=== PATIENT | male | born 1980 | race Caucasian/White ===

== ENCOUNTER 2024-05-29 07:39 | Inpatient (IN) | payer OTHER ==
[~2024-05-29] VITALS: Ht 177.8 cm; Wt 57.2 kg
[2024-05-29] MEDS ORDERED: DEXTROSE (50%) 50ML SYRG IV PRN ×2 (07:45→09:15)
[2024-05-29] MEDS: SODIUM CHLORIDE 0.9% 1,000 ML IV ONE (07:45)
--- NOTE | 2024-05-29 07:46 | ED.PDOC ---
History of Present Illness HPI Comments This is a 44-year-old male who comes in with chief complaint of possible DKA. The patient has a history of diabetes and states that his insulin pump broke approximately one week ago. The patient was now having some nausea and vomiting. The patient had an Accu-Chek of 450 by the paramedics EN route. He received 800 cc of normal saline as well as Zofran 8 mg IV push for the nausea and vomiting. The patient was also complaining of some pain so was given acetaminophen 1 g IV piggyback. Upon arrival, the patient was also having some Kussmaul breathing as well as some abdominal pain. He admits to using marijuana on a regular basis as well. Time Seen by MD: 07:39 Reviewed Notes: Nurses Notes, Landscape Specialist Notes, Medications, Allergies (No allergies to medications) Allergies: Coded Allergies: NO KNOWN ALLERGIES (Unverified , 05/29/24) Information Source: Patient, Emergency Med Personnel Mode of Arrival: EMS Severity: Moderate Timing: Hours Duration: Since onset Prehospital treatment: Accucheck, Credit Product Analyst, IVF, Other (Normal saline bolus, Zofran 8 mg IV push) Location: Generalized abdominal pain Other History Associated vomiting Past Medical History PAST MEDICAL HISTORY: Asthma, DM Past Medical History (Other): Gastroparesis Surgical History: Appendectomy Surgical History (Other): Abdominal surgery Family History Family History: Family hx of DM, Family hx of Cancer Social History Smoker: Non-Smoker Alcohol: Denies ETOH Use Drugs: Marijuana Lives In: Home Constitutional: denies: chills, diaphoresis, fatigue, fever, malaise, sweats, weakness, others EENTM: denies: blurred vision, double vision, ear bleeding, ear discharge, ear drainage, ear pain, ear ringing, eye pain, eye redness, hearing loss, mouth pain, mouth swelling, nasal discharge, nose bleeding, nose congestion, nose pain, photophobia, tearing, throat pain, throat swelling, voice changes, others Respiratory: reports: shortness of breath; denies: cough, hemoptysis, orthopnea, SOB at rest, SOB with excertion, stridor, wheezing, others Cardiovascular: denies: chest pain, dizzy spells, diaphoresis, Dyspnea on exertion, edema, irregular heart beat, left arm pain, lightheadedness, palpitations, PND, syncope, others Gastrointestinal: reports: abdominal pain, nausea, vomiting; denies: abdomen distended, blood streaked bowels, constipated, diarrhea, dysphagia, difficulty swallowing, hematemesis, melena, poor appetite, poor fluid intake, rectal b leeding, rectal pain, others Genitourinary: denies: burning, dysuria, flank pain, frequency, hematuria, in continence, penile discharge, penile sore, pain, testicle pain, testicle swelling, urgency, others Neurological: denies: dizziness, fainting, headache, left sided numbness, left sided weakness, numbness, paresthesia, pre-existing deficit, right sided numbness, right sided weakness, seizure, speech problems, tingling, tremors, weakness, others Musculoskeletal: denies: back pain, gout, joint pain, joint swelling, muscle pain, muscle stiffness, neck pain, others Integumetry: denies: bruises, change in color, change in hair/nails, dryness, laceration, lesions, lumps, rash, wounds, others Allergic/Immunocompromised: denies: Difficulty Healing, Frequent Infections, Hives, Itching, others Hematologic/Lymphatic: denies: anemia, blood clots, easy bleeding, easy bruising, swollen glands, others Endocrine: denies: excessive hunger, excessive sweating, excessive thirst, excessive urination, flushing, intolerance to cold, intolerance to heat, unexplained weight gain, unexplained weight loss, others Psychiatric: denies: anxiety, bipolar disorder, depression, hopeless, panic disorder, schizophrenia, sleepless, suicidal, others Physical Exam General Appearance: Moderate Distress HEENT: Normal ENT Inspection, Pharynx Normal, TMs Normal Neck: Full Range of Motion, Non-Tender, Normal, Normal Inspection Respiratory: Chest Non-Tender, Decreased Breath Sounds, Lungs Clear, No Accessory Muscle Use, Respiratory Distress Cardiovascular: No Edema, No JVD, No Murmur, No Gallop, Tachycardia Breast Exam: Deferred Gastrointestinal: No Organomegaly, Non Tender, No Pulsatile Mass, Normal Bowel Sounds, Soft Genitalia: Deferred Pelvic: Deferred Rectal: Deferred Extremities: No calf tenderness, Normal capillary refill, Normal inspection, Normal range of motion, Non-tender, No pedal edema Musculoskeletal : Apperance: Normal Neurologic: collection advisor II-XII nml as Tested, Motor Weakness, Normal Affect, Normal Mood, No Sensory Deficits, Other (Slight lethargy) Cerebellar Function: Normal Reflexes: Normal Skin: Dry, Normal Color, Warm Lymphatic: No Adenopathy Was a procedure done? Was a procedure done?: No EKG EKG : Pulse Rate (adult): 118 [place]: Normal Cardiac Rhythm: ST Block: None ST: Nonsp Differential Dx Considerations may include: DKA, generalized weakness, sepsis X-Ray, Labs, Meds, VS Vital Signs Date Time Temp Pulse Resp B/P (MAP) Pulse Ox O2 Delivery O2 Flow Rate FiO2 05/29/24 08:14 117 22 148/97 05/29/24 07:58 118 05/29/24 07:50 97.5 122 22 179/103 (128) 98 05/29/24 07:50 Room Air* 0 21 Lab Test 05/29/24 07:55 Range/Units White Blood Count 23.8 H 4.4-10.8 10^3/uL Red Blood Count 5.25 4.5-5.90 10^6/uL Hemoglobin 15.5 13.5-17.5 g/dL Hematocrit 45.9 41.0-53.0 % Mean Corpuscular Volume 87.3 80.0-100.0 fL Mean Corpuscular Hemoglobin 29.6 28.0-32.0 pg Mean Corpuscular Hemoglobin Concent 33.9 32.0-36.0 g/dL Red Cell Distribution Width 14.3 11.8-14.3 % Platelet Count 335 140-450 10^3/uL Mean Platelet Volume 8.9 6.9-10.8 fL Neutrophils (%) (Auto) 37.0-80.0 % Lymphocytes (%) (Auto) 10.0-50.0 % Monocytes (%) (Auto) 0.0-12.0 % Basophils (%) (Auto) 0.0-2.0 % Neutrophils # (Auto) 1.6-8.6 10 ^3/uL Lymphocytes # (Auto) 0.4-5.4 10 ^3/uL Monocytes # (Auto) 0-1.3 10 ^3/uL Differential Total Cells Counted Pending Neutrophils % (Manual) Pending Band Neutrophils % (Manual) Pending Lymphocytes % (Manual) Pending Monocytes % (Manual) Pending Eosinophils % (Manual) Pending Basophils % (Manual) Pending Metamyelocytes % (manual) Pending Myelocytes % (Manual) Pending Promyelocytes % (Manual) Pending Blast Cells % (Manual) Pending Reactive Lymphocytes Pending Platelet Estimate Pending Blood Gas Specimen Type Arterial Blood Gas Sample Site Left radial Blood Gas Patient Temperature 37.0 Arterial Blood Date Drawn [id number] Arterial Blood pH 7.105 *L 7.350-7.450 Arterial Blood Partial Pressure CO2 < 12.6 *L 35.0-48.0 mmHg Arterial Blood Partial Pressure O2 103.9 83.0-108.0 mmHg Arterial Blood Oxygen Saturation 97.4 94.0-98.0 % Arterial Blood Oxyhemoglobin 96.3 94.0-98.0 % Arterial Blood Carboxyhemoglobin 0.6 0.5-1.5 % Arterial Blood Methemoglobin 0.5 0.0-1.5 % Gil Test Modified Blood Gas Total Hemoglobin 15.70 13.5-17.5 g/dL Blood Gas Liter Flow 2.00 Blood Gas Modality Nasal cannula FiO2 % 28.0 Blood Gas Critical Value Read Back Yes Blood Gas Notified Whom Blood Gas Notified Time [id number] Blood Gas Notified By Automotive Technology Instructor parisa Sodium Level 130 L 136-145 mmol/L Potassium Level 4.8 3.5-5.1 mmol/L Chloride Level 99 98-107 mmol/L Carbon Dioxide Level < 10 *L 20-31 mmol/L Anion Gap 21.08804 H 5-15 Blood Urea Nitrogen 13 9-23 mg/dL Creatinine 1.19 0.700-1.30 mg/dL Glomerular Filtration Rate Calc 77 >90 mL/min BUN/Creatinine Ratio 10.9 10.0-20.0 Serum Glucose 411 *H 74-106 mg/dL Calcium Level 8.9 8.7-10.4 mg/dL Beta-Hydroxybutyric Acid Pending Current Medications Medications (Trade) Dose Ordered Sig/Jaci Route Start Time Stop Time Status Last Admin Insulin Glargine (Lantus) 15 units ONCE ONCE SC 05/29/24 07:45 05/29/24 07:46 DC 05/29/24 08:15 Sodium Chloride 1,000 ml @ 1,000 mls/hr Q1H ONCE IV 05/29/24 07:45 05/29/24 08:44 DC 12/3/24 07:45 Morphine Sulfate 4 mg ONCE ONCE IV 05/29/24 07:45 05/29/24 07:46 DC 05/29/24 08:14 DKA protocol was ordered IV Hep-Lock was established. The patient was started on insulin. We feel that the patient is in DKA so we did an ABG. The pH shows 7.10/bicarb is nondetected The chemistry panel shows hyponatremia as well as a CO2 level less than 10 and an anion gap greater than 21 The serum glucose is 411. The patient's CBC shows an elevated white blood cell count of 23.8. At this time, the patient was started on an insulin drip. The patient was given morphine for the pain but states that the pain is persistent The patient was now being given Dilaudid 0.5 mg IV push The patient will be admitted to the ICU. Critical Care was done secondary to bedside management as well as interpretation of labs Images Reviewed?: Images reviewed and evaluated by me Time of 1ST Reevaluation: 07:45 Reevaluation 1ST: Unchanged Patient Education/Counseling: Diagnosis, Treatment, Prognosis Family Education/Counseling: No Family Present Departure 1 Departure Time of Disposition: 09:06 Impression: Primary Impression: Diabetic ketoacidosis Qualified Codes: E13.11 - Other specified diabetes mellitus with ketoacidosis with coma Disposition: ADMITTED INPATIENT Admit to: ICU Condition: Guarded Critical Care Note Critical Care Time?: Yes (45 min-critical care time only) Stability Stability form required: Yes Unstable for transfer: ICU, CCU, PCU, GORDO (Intensive VS monitoring), May requir e CPR (possible rapid decline), ED Physician Assesment (Clinical assesment) Heart Score Heart Score: Heart Score Response (Comments) Value History N/A 0 EKG N/A 0 Age N/A 0 Risk Factors N/A 0 Troponin N/A 0 Total 0 NORMA BARCENAS MD May 29, 2024 07:46
[2024-05-29 08:13] LABS: Hematocrit 45.9 % (41.0-53.0); Hemoglobin 15.5 g/dL (13.5-17.5); Mean Corpuscular Hemoglobin 29.6 pg (28.0-32.0); Mean Corpuscular Hgb Conc. 33.9 g/dL (32.0-36.0); Mean Corpuscular Volume 87.3 fL (80.0-100.0); Platelet Count (auto) 335 10^3/uL (140-450); Red Blood Cells 5.25 10^6/uL (4.5-5.90); Red Cell Distribution Width 14.3 % (11.8-14.3); White Blood Cell 23.8 10^3/uL (4.4-10.8)
[2024-05-29] MEDS: MORPHINE SULFATE 4 MG/ML SYR/VIAL IV ONE (08:14)
[2024-05-29 08:15] LABS: Chloride 99 mmol/L (98-107); Potassium 4.8 mmol/L (3.5-5.1); Sodium 130 mmol/L (136-145)
[2024-05-29] MEDS: INSULIN LANTUS (GLARGINE) 1 /0.01ml (100units/ml) SC ONE (08:15)
[2024-05-29 08:16] LABS: Anion Gap 21.00001 (5-15); Calcium 8.9 mg/dL (8.7-10.4)
[2024-05-29 08:21] LABS: BUN/Creatinine Ratio 10.9 (10.0-20.0); Blood Urea Nitrogen 13 mg/dL (9-23)
[2024-05-29 08:26] LABS: Carbon Dioxide < 10 mmol/L (20-31); Glucose 411 mg/dL (74-106)
[2024-05-29 08:29] LABS: Basophils % (manual) 0 (0.0-2.0); Blast Cells 0; Eosinophils % (manual) 0 (0-7); Metamyelocytes % 0; Myelocytes % 0; Promyelocytes % 0; Reactive Lymphocytes 0
--- NOTE | 2024-05-29 08:38 | DVH ---
XY CHEST PORTABLE, HISTORY: ALOC COMPARISON: None None TECHNICAL DATA: 1 view of the chest was obtained. FINDINGS: Lines and tubes: None Cardiomediastinal silhouette: normal Pulmonary vasculature: normal Lung expansion: normal Lung airspace: normal Lung interstitium: normal Pleura: normal Pneumothorax: no Bones: Unremarkable Other: no IMPRESSION: No acute intrathoracic abnormality.
[2024-05-29] MEDS: INSULIN DRIP 100 UNIT/100ML 100 ML IV SCH (09:06)
[2024-05-29 09:11] LABS: Band Neutrophils % (manual) 4; Lymphocytes % (manual) 3 (10.0-50.0); Monocytes % (manual) 14 (0-12); Platelet Estimate Adequate
[2024-05-29] MEDS ORDERED: ACETAMINOPHEN 325 MG TAB PO PRN (09:15)
[2024-05-29] MEDS ORDERED: MAALOX PLUS or MAALOX 30 ML PO PRN (09:15)
[2024-05-29] MEDS: SODIUM CHLORIDE 0.9% 500 ML IV SCH (09:15)
[2024-05-29] MEDS ORDERED: DOCUSATE SOD 100 MG CAP PO PRN (09:15)
[2024-05-29] MEDS ORDERED: LORazepam 0.5 MG TAB PO PRN (09:15)
[2024-05-29] MEDS: ACCU-CHEK COMFORT CURVE STRIP VI SCH ×2 (09:18→12:15)
[2024-05-29] MEDS: HYDROmorphone HCL 2 MG/ML VL/or syr IV ONE (09:23)
--- NOTE | 2024-05-29 10:02 | DVHHP2 ---
History of Present Illness Reason for Visit: Hyperglycemia History of Present Illness 44-year-old with a past medical history of diabetes and asthma comes to the ED for complaints that his insulin pump his broken patient typically uses insulin pump to maintain and monitor his sugars however his pump has been malfunctioning for the last week patient has not been able to replace it states that his glucose has been elevated greater than the 500s all week today patient started having symptoms of hyperglycemia including shakiness weakness nausea vomiting and abdominal pain on initial evaluation patient was shown to have elevated glucose greater than the 500 range as well as severe symptoms of weakness nausea vomiting patient was started on insulin sliding scale in the ED Endocrine: Diabetes Review of Systems Constitutional: Yes: Weakness; No: Fever, Chills, Sweats, Malaise, Other Eyes: No: Pain, Vision change, Conjunctivae inflammation, Eyelid inflammation, Other, Redness ENT: No: Ear pain, Ear discharge, Nose pain, Nose discharge, Nose congestion, Mouth pain, Mouth swelling, Throat pain, Throat swelling, Other Respiratory: No: Cough, Dry, Shortness of breath, SOB with excertion, Wheezing, Hemoptysis, Pleuritic Pain, Sputum, Wheezing, Other Cardiovascular: No: Chest Pain, Palpitations, Orthopnea, Paroxysmal Noc. Dyspnea, Edema, Lt Headedness, Other Gastrointestinal: No: Nausea, Vomiting, Abdominal Pain, Diarrhea, Constipation, Melena, Hematochezia, Other Genitourinary: No Dysuria; Frequency, Incontinence; No Hematuria, No Retention, No Other Musculoskeletal: No: other, neck pain, shoulder pain, arm pain, back pain, hand pain, leg pain, foot pain Skin: No: Rash, Lesions, Jaundice, Bruising, Other Neurological: No: Weakness, Numbness, Incoordination, Change in speech, Confusion, Seizures, Other Allergies: Coded Allergies: NO KNOWN ALLERGIES (Unverified , 05/29/24) Medications Current Medications Medications Dose Ordered Sig/Jaci Route Start Time Stop Time Status Last Admin Dose Admin Insulin Human (Reg)/Sodium Chloride 100 ml @ 0.5 mls/hr Q24H IV 05/29/24 07:45 05/29/24 09:06 0.5 MLS/HR Diagnostic Test (Pha) 1 strip Q90MIN 05/29/24 09:00 Dextrose 50 ml PRN PRN IV 05/29/24 07:45 Insulin Glargine 15 units DAILY SC 05/30/24 10:00 Exam Vital Signs Vital Signs Date Time Temp Pulse Resp B/P (MAP) Pulse Ox O2 Delivery O2 Flow Rate FiO2 05/29/24 08:14 117 22 148/97 05/29/24 07:50 97.5 98 05/29/24 07:50 Room Air* 0 21 General Appearance: Alert, Oriented X3, Cooperative, moderate distress HEENT: Atraumatic, PERRLA Respiratory: Clear to auscultation, Normal air movement Cardiovascular: Regular rate, Normal S1, Normal S2 Abdominal: Normal bowel sounds, Soft Extremities: No clubbing, No cyanosis Skin: No rashes, No breakdown Neuro: Normal gait, Normal speech Psych/Mental Status: Mood NL Labs/Xrays Labs Test 05/29/24 09:16 05/29/24 07:55 Range/Units POC Glucose 397 H 70-106 mg/dl White Blood Count 23.8 H 4.4-10.8 10^3/uL Red Blood Count 5.25 4.5-5.90 10^6/uL Hemoglobin 15.5 13.5-17.5 g/dL Hematocrit 45.9 41.0-53.0 % Mean Corpuscular Volume 87.3 80.0-100.0 fL Mean Corpuscular Hemoglobin 29.6 28.0-32.0 pg Mean Corpuscular Hemoglobin Concent 33.9 32.0-36.0 g/dL Red Cell Distribution Width 14.3 11.8-14.3 % Platelet Count 335 140-450 10^3/uL Mean Platelet Volume 8.9 6.9-10.8 fL Neutrophils (%) (Auto) 37.0-80.0 % Lymphocytes (%) (Auto) 10.0-50.0 % Monocytes (%) (Auto) 0.0-12.0 % Basophils (%) (Auto) 0.0-2.0 % Neutrophils # (Auto) 1.6-8.6 10 ^3/uL Lymphocytes # (Auto) 0.4-5.4 10 ^3/uL Monocytes # (Auto) 0-1.3 10 ^3/uL Differential Total Cells Counted 100.0 100 Neutrophils % (Manual) 79 37.0-80.0 Band Neutrophils % (Manual) 4 Lymphocytes % (Manual) 3 L 10.0-50.0 Monocytes % (Manual) 14 H 0-12 Eosinophils % (Manual) 0 0-7 Basophils % (Manual) 0 0.0-2.0 Metamyelocytes % (manual) 0 Myelocytes % (Manual) 0 Promyelocytes % (Manual) 0 Blast Cells % (Manual) 0 Reactive Lymphocytes 0 Platelet Estimate Adequate Blood Gas Specimen Type Arterial Blood Gas Sample Site Left radial Blood Gas Patient Temperature 37.0 Arterial Blood Date Drawn [id number] Arterial Blood pH 7.105 *L 7.350-7.450 Arterial Blood Partial Pressure CO2 < 12.6 *L 35.0-48.0 mmHg Arterial Blood Partial Pressure O2 103.9 83.0-108.0 mmHg Arterial Blood Oxygen Saturation 97.4 94.0-98.0 % Arterial Blood Oxyhemoglobin 96.3 94.0-98.0 % Arterial Blood Carboxyhemoglobin 0.6 0.5-1.5 % Arterial Blood Methemoglobin 0.5 0.0-1.5 % Gil Test Modified Blood Gas Total Hemoglobin 15.70 13.5-17.5 g/dL Blood Gas Liter Flow 2.00 Blood Gas Modality Nasal cannula FiO2 % 28.0 Blood Gas Critical Value Read Back Yes Blood Gas Notified Whom Blood Gas Notified Time [id number] Blood Gas Notified By Director Of Reimbursement parisa Sodium Level 130 L 136-145 mmol/L Potassium Level 4.8 3.5-5.1 mmol/L Chloride Level 99 98-107 mmol/L Carbon Dioxide Level < 10 *L 20-31 mmol/L Anion Gap 21.93851 H 5-15 Blood Urea Nitrogen 13 9-23 mg/dL Creatinine 1.19 0.700-1.30 mg/dL Glomerular Filtration Rate Calc 77 >90 mL/min BUN/Creatinine Ratio 10.9 10.0-20.0 Serum Glucose 411 *H 74-106 mg/dL Calcium Level 8.9 8.7-10.4 mg/dL Beta-Hydroxybutyric Acid > 4.500 H < 0.4 mmol/L Assessment/Plan Assessment/Plan Admit to ICU DKA Insulin sliding scale regimen started in the ED DKA protocol IV hydration aggressive Insulin sliding scale aggressive Evaluation with Endocrinology for evaluation of replacement equipment Type 1 diabetes with DKA widened gap continue patient on insulin drip Plan discussed with: Patient My Orders Orders - MARJORIE LANDA MD Procedure Category Date Status Time Urinalysis LAB 05/29/24 Logged 09:11 Glucose Blood PHA 05/29/24 In Process (Accu-Chek Comfort 12:00 Insulin R (Human) PHA 05/29/24 In Process (Insulin R) 12:00 Dextrose 50% Syringe PHA 05/29/24 In Process 09:15 Sodium Chloride 0.9% PHA 05/29/24 In Process 09:15 * Endocrinology CONS 05/29/24 Transmitted Consult 09:11 Admit ADMIT 05/29/24 Transmitted 09:11 Code Status CODE 05/29/24 Transmitted 09:11 Vital Signs DARIAN 05/29/24 In Process 09:11 Review Orders With DARIAN 05/29/24 In Process Adm. 09:11 Consistent DIET 05/29/24 Transmitted Carb(Ccho)Diabetes Breakfast Lorazepam Tablet PHA 05/29/24 In Process (Ativan Tablet) 09:15 Alum & Mag PHA 05/29/24 In Process Hydrox-Simethicone 09:15 Docusate Sodium PHA 05/29/24 In Process Capsule (Colace 09:15 Acetaminophen Tablet PHA 05/29/24 In Process (Tylenol Tablet) 09:15 Temazepam (Restoril) PHA 05/29/24 In Process 09:15 Notify Of Changes [facility] 05/29/24 In Process From Base 09:11 Advance Directive DARIAN 05/29/24 In Process 09:11 Basic Metabolic Panel LAB 05/29/24 Logged 12:00 Complete Blood Count LAB 05/30/24 Verified 04:00 Patient Condition ORDERS 05/29/24 Transmitted 09:11 Allergies DARIAN 05/29/24 In Process 09:11 Hydrocodone-Acet PHA 05/29/24 In Process 5/325mg Tab (Pillager 09:15 Ondansetron Hcl PHA 05/29/24 In Process (Zofran) 09:15 Drug Screen LAB 05/29/24 Logged 09:11 Morphine Sulfate PHA 05/29/24 In Process Injection 09:15 Notify Of Changes [facility] 05/29/24 In Process From Base 09:11 Rhythm Strips Once DARIAN 05/29/24 In Process Every Shift 09:11 Oxygen By Nasal RT 05/29/24 Transmitted Cannula 09:11 Ear Muff Assembler For DARIAN 05/29/24 In Process 24 Hours 09:11 Problem List: (1) Diabetic ketoacidosis Date of Service: May 29, 2024 Billing Provider: MARJORIE LANDA MD Common Visit Codes: [id number] INP/OBS CARE (HIGH) MARJORIE LANDA MD May 29, 2024 10:02
[2024-05-29 11:50] VITALS: RESP 17; O2SAT 97
[2024-05-29] MEDS: InsuLIN REG 1unit/0.01ml Soln (100units/ml) SC SCH (12:00)
[2024-05-29 13:38] LABS: Potassium 4.5 mmol/L (3.5-5.1)
[2024-05-29 13:39] LABS: Anion Gap 16 (5-15)
[2024-05-29 13:44] LABS: BUN/Creatinine Ratio 14.7 (10.0-20.0); Blood Urea Nitrogen 14 mg/dL (9-23)
[2024-05-29 13:46] LABS: Carbon Dioxide 10 mmol/L (20-31); Chloride 109 mmol/L (98-107); Glucose 139 mg/dL (74-106); Sodium 135 mmol/L (136-145)
[2024-05-29] MEDS: ONDANSETRON HCL 4 MG/2 ML VIAL IV PRN (14:13)
[2024-05-29] MEDS: MORPHINE SULFATE INJ 2 MG/ml SYRG IV PRN (14:14)
[2024-05-29] MEDS: PROCHLORPERAZINE EDISYLATE 5 MG/ML 2ML VIAL IV ONE (14:29)
[2024-05-29] MEDS: D5W/SOD CHL 0.45% 1,000 ML IV SCH (15:15)
[2024-05-29] MEDS: METOCLOPRAMIDE HCL 5MG/ml INJ 2ml VIAL IV PRN (22:20)
[2024-05-29 22:41] VITALS: PULSE 106; RESP 14; O2SAT 98
[2024-05-30] VITALS (8 sets, daily range): BP systolic 118–162; BP diastolic 65–111; PULSE 88–112; RESP 12–22; TEMP 98.3–99.3; O2SAT 95–99
[2024-05-30 01:46] LABS: Chloride 107 mmol/L (98-107)
[2024-05-30 01:47] LABS: Anion Gap 15 (5-15)
[2024-05-30 01:48] LABS: Calcium 9.4 mg/dL (8.7-10.4)
[2024-05-30 01:52] LABS: Glucose 80 mg/dL (74-106)
[2024-05-30 01:53] LABS: Blood Urea Nitrogen 7 mg/dL (9-23); Carbon Dioxide 14 mmol/L (20-31); Potassium 3.1 mmol/L (3.5-5.1); Sodium 136 mmol/L (136-145)
[2024-05-30] MEDS ORDERED: DEXTROSE (50%) 50ML SYRG IV PRN (02:30)
[2024-05-30] MEDS: InsuLIN REG 1unit/0.01ml Soln (100units/ml) SC SCH (04:00)
[2024-05-30] MEDS: ACCU-CHEK COMFORT CURVE STRIP VI SCH (04:15)
[2024-05-30 05:31] LABS: Basophils # (auto) 0 10 ^3/uL (0-0.2); Basophils % (auto) 0.1 % (0.0-2.0); Eosinophils # (auto) 0 10 ^3/uL (0-0.8); Eosinophils % (auto) 0.1 % (0.0-7.0); Hematocrit 37.8 % (41.0-53.0); Hemoglobin 13.7 g/dL (13.5-17.5); Lymphocytes # (auto) 1.4 10 ^3/uL (0.4-5.4); Lymphocytes % (auto) 8.6 % (10.0-50.0); Mean Corpuscular Hemoglobin 29.9 pg (28.0-32.0); Mean Corpuscular Hgb Conc. 36.2 g/dL (32.0-36.0); Mean Corpuscular Volume 82.6 fL (80.0-100.0); Monocytes # (auto) 1.6 10 ^3/uL (0-1.3); Monocytes % (auto) 9.4 % (0.0-12.0); Neutrophils # (auto) 13.4 10 ^3/uL (1.6-8.6); Neutrophils % (auto) 81.8 % (37.0-80.0); Platelet Count (auto) 273 10^3/uL (140-450); Red Blood Cells 4.58 10^6/uL (4.5-5.90); Red Cell Distribution Width 14.3 % (11.8-14.3); White Blood Cell 16.4 10^3/uL (4.4-10.8)
[2024-05-30] MEDS: HYDROcodone-ACET 5/325MG TAB PO PRN (06:17)
[2024-05-30] MEDS ORDERED: INSULIN LANTUS (GLARGINE) 1 /0.01ml (100units/ml) SC SCH (10:00)
--- NOTE | 2024-05-30 10:35 | ECG ---
[facility] Test Date: 2024-05-30 Test Time: 01:07:47 Pat Name: VÍCTOR SANTOS Department: ED Room: 0280T Gender: M Keno Clerk: CAROL : 1980 Requested By: NORMA BARCENAS Order Number: [id number] Reading MD: Jacek Cardoso Measurements Intervals [place] Rate: 92 P: 74 GA: 143 QRS: 74 QRSD: 97 T: -77 QT: 383 QTc: 474 Interpretive Statements Sinus rhythm Multiple ventricular premature complexes Anteroseptal infarct, old Borderline repolarization abnormality Electronically Signed On 05-30-2024 16:31:36 PST by Jacek Cardoso Please click the below link to view image of tracing.
--- NOTE | 2024-05-30 10:42 | DVHPN2 ---
Progress Note Date Seen: May 30, 2024 Medical Necessity Reason Pt with a Central, PICC or Fol: No Subjective Patient reports: No new complaints Review of Systems: HEENT:Normal, CVS:Normal, RESPIRATORY:Normal, GI:Normal, :Normal, MSK:Normal, NEURO:Normal Objective vital signs Vital Sign Date Time Temp Pulse Resp B/P (MAP) Pulse Ox O2 Delivery O2 Flow Rate FiO2 05/30/24 10:14 102 15 95 Room Air* 0 21 05/30/24 10:00 98.0 143/94 (110) 98.0 Total Intake and Output 05/29/24 05/29/24 05/30/24 15:00 23:00 07:00 Intake Total 2512.0 ml 453.0 ml Balance 2512.0 ml 453.0 ml medications Current Medications Medications Dose Ordered Sig/Jaci Route Start Time Stop Time Status Last Admin Dose Admin Lorazepam 0.5 mg Q6HP PRN PO 05/29/24 09:15 Al Hydrox/Mg Hydrox/Simethicone 30 ml Q6HP PRN PO 05/29/24 09:15 Docusate Sodium 100 mg BIDPRN PRN PO 05/29/24 09:15 Acetaminophen 650 mg Q6HP PRN PO 05/29/24 09:15 Temazepam 15 mg QHSP PRN PO 05/29/24 09:15 Acetaminophen/ Hydrocodone Bitart 1 tab Q4HP PRN PO 05/29/24 09:15 05/30/24 10:11 1 TAB Ondansetron HCl 4 mg Q4HP PRN IV 05/29/24 09:15 05/30/24 04:02 4 MG Morphine Sulfate 2 mg Q4HPRN PRN IV 05/29/24 09:15 05/30/24 04:02 2 MG Metoclopramide HCl 5 mg Q4HR PRN IV 05/29/24 21:00 05/29/24 22:20 5 MG Diagnostic Test (Pha) 1 strip IQ4HR 05/30/24 04:00 05/30/24 08:00 1 STRIP Insulin Human Regular IQ4HR SC 05/30/24 04:00 Dextrose 50 ml UD PRN IV 05/30/24 02:30 Examination: GENERAL:Normal, HEENT:Normal, NECK:Normal, LUNGS:Normal, CVS:Normal, ABDOMEN:Normal, MSK:Normal, SKIN:Normal, NEURO:Normal, :Normal laboratory and microbiology Laboratory Tests 05/30/24 04:21 05/30/24 01:25 Test 05/30/24 01:25 Range/Units Serum Glucose 80 74-106 mg/dL Problem List/Assessment/Plan Problem List/Assessment/Plan #1 dka: insulin, ivf #2 malfunctioning insulin pump #3 asthma #4 diabetic gastroparesis Plan discussed with: Patient Critical Care Time (mins): 41 (critical care time 41 mins) Date of Service: May 30, 2024 Billing Provider: SHARONA ZAYAS MD Common Visit Codes: [id number] CARE 30-74 MIN SHARONA ZAYAS MD May 30, 2024 10:42
[2024-05-30] MEDS: POTASSIUM CHLORIDE 40 MEQ, LIDOCAINE 1% (LOCAL ANESTH.) 4 ML in SODIUM CHL 0.9% 250 ML IV ONE (11:23)
[2024-05-30] MEDS: SODIUM CHLORIDE 0.9% 1,000 ML IV SCH (11:30)
[2024-05-30] MEDS: PANTOPRAZOLE 40 MG/10 ML VIAL INJ IV ONE (11:30)
[2024-05-30 13:06] LABS: Urine Bacteria None Seen /hpf (None Seen)
[2024-05-30 13:28] LABS: Urine Blood Negative /uL (Negative); Urine Clarity Clear (Clear); Urine Color Light-Yellow (Yellow); Urine Mucus FEW (None Seen); Urine Protein, UAD TRACE (Negative); Urine Specific Gravity 1.019 (1.001-1.035); Urine Urobilinogen Normal (Negative); Urine WBC 1 /hpf (0 - 3)
[2024-05-30 13:31] LABS: Amphetamine Screen, Urine Neg (NEGATIVE); Barbiturate Scree,Urine Neg (NEGATIVE); Benzodiazephine Screen, Urine Neg (NEGATIVE); Cannabinoid Screen, Urine Pos (NEGATIVE); Cocaine Screen, Urine Neg (NEGATIVE); Opiate Scree,Urine Pos (NEGATIVE); Phencyclidine Screen, Urine Neg (NEGATIVE)
--- NOTE | 2024-05-30 14:38 | ECG ---
[facility] Test Date: 2024-05-29 Test Time: 07:52:09 Pat Name: VÍCTOR SANTOS Department: ER Room: 0280T Gender: M Parts Counter Clerk: SHUBHAM : 1980 Requested By: NORMA BARCENAS Order Number: [id number] Reading MD: Jacek Cardoso Measurements Intervals [place] Rate: 118 P: 83 [place]: 162 QRS: 68 QRSD: 91 T: -73 QT: 325 QTc: 456 Interpretive Statements Sinus tachycardia Abnormal T, consider ischemia, diffuse leads Electronically Signed On 05-30-2024 16:23:37 PST by Jacek Cardoso Please click the below link to view image of tracing.
[2024-05-30] MEDS ORDERED: INSLISPI SC (16:19)
[2024-05-30] MEDS: hydrALAZINE HCL 20 MG/ML VL IV PRN (16:28)
[2024-05-30] MEDS: INSULIN LANTUS (GLARGINE) 1 /0.01ml (100units/ml) SC SCH (22:00)
[2024-05-31] VITALS (8 sets, daily range): BP systolic 116–140; BP diastolic 67–93; PULSE 70–101; RESP 17–20; TEMP 97.7–98.7; O2SAT 97–100
[2024-05-31 06:33] LABS: Anion Gap 15 (5-15); Chloride 103 mmol/L (98-107); Magnesium 1.7 mg/dL (1.6-2.6); Sodium 137 mmol/L (136-145)
[2024-05-31 06:34] LABS: Albumin 3.4 g/dL (3.2-4.8)
[2024-05-31 06:55] LABS: Alanine Aminotransferase < 9 U/L (7-40); Alkaline Phosphatase 46 U/L (46-116); Aspartate Aminotransferase 9 U/L (13-40); BUN/Creatinine Ratio 8.9 (10.0-20.0); Bilirubin, Total 1.7 mg/dL (0.2-1.0); Blood Urea Nitrogen < 5 mg/dL (9-23); Calcium 8.3 mg/dL (8.7-10.4); Carbon Dioxide 19 mmol/L (20-31); Glucose 168 mg/dL (74-106); Phosphorus 1.3 mg/dL (2.4-5.1); Potassium 2.4 mmol/L (3.5-5.1); Total Protein 4.9 g/dL (5.7-8.2)
[2024-05-31 07:00] LABS: Basophils # (auto) 0 10 ^3/uL (0-0.2); Basophils % (auto) 0.1 % (0.0-2.0); Eosinophils # (auto) 0 10 ^3/uL (0-0.8); Eosinophils % (auto) 0.1 % (0.0-7.0); Hematocrit 33.7 % (41.0-53.0); Hemoglobin 12.1 g/dL (13.5-17.5); Lymphocytes # (auto) 0.9 10 ^3/uL (0.4-5.4); Lymphocytes % (auto) 11.2 % (10.0-50.0); Mean Corpuscular Hemoglobin 29.6 pg (28.0-32.0); Mean Corpuscular Hgb Conc. 35.9 g/dL (32.0-36.0); Mean Corpuscular Volume 82.6 fL (80.0-100.0); Monocytes # (auto) 0.8 10 ^3/uL (0-1.3); Monocytes % (auto) 10.8 % (0.0-12.0); Neutrophils # (auto) 5.9 10 ^3/uL (1.6-8.6); Neutrophils % (auto) 77.8 % (37.0-80.0); Nucleated Red Blood Cells % 0.1 %; Platelet Count (auto) 203 10^3/uL (140-450); Red Blood Cells 4.08 10^6/uL (4.5-5.90); Red Cell Distribution Width 14.2 % (11.8-14.3); White Blood Cell 7.6 10^3/uL (4.4-10.8)
[2024-05-31] MEDS: PANTOPRAZOLE 40 MG/10 ML VIAL INJ IV SCH (07:48)
[2024-05-31] MEDS: POTASSIUM EFFERVESENT TAB 25 MEQ GT ONE (07:49)
[2024-05-31] MEDS: POTASSIUM CHLORIDE 80 MEQ, LIDOCAINE 1% (LOCAL ANESTH.) 6 ML in SODIUM CHL 0.9% 500 ML IV ONE (14:18)
--- NOTE | 2024-05-31 14:36 | DVHPN2 ---
Progress Note Date Seen: May 31, 2024 Medical Necessity Reason Pt with a Central, PICC or Fol: No Subjective Patient reports: No new complaints Review of Systems: HEENT:Normal, CVS:Normal, RESPIRATORY:Normal, GI:Normal, :Normal, MSK:Normal, NEURO:Normal Objective vital signs Vital Sign Date Time Temp Pulse Resp B/P (MAP) Pulse Ox O2 Delivery O2 Flow Rate FiO2 05/31/24 09:00 97.7 70 20 116/80 (92) 98 97.7 05/31/24 08:00 Room Air* 0 21 Total Intake and Output 05/30/24 05/30/24 05/31/24 15:00 23:00 07:00 Intake Total 400 ml 300 ml 400 ml Output Total 700 ml Balance 400 ml 300 ml -300 ml medications Current Medications Medications Dose Ordered Sig/Jaci Route Start Time Stop Time Status Last Admin Dose Admin Lorazepam 0.5 mg Q6HP PRN PO 05/29/24 09:15 Al Hydrox/Mg Hydrox/Simethicone 30 ml Q6HP PRN PO 05/29/24 09:15 Docusate Sodium 100 mg BIDPRN PRN PO 05/29/24 09:15 Acetaminophen 650 mg Q6HP PRN PO 05/29/24 09:15 Temazepam 15 mg QHSP PRN PO 05/29/24 09:15 Acetaminophen/ Hydrocodone Bitart 1 tab Q4HP PRN PO 05/29/24 09:15 05/31/24 12:11 1 TAB Ondansetron HCl 4 mg Q4HP PRN IV 05/29/24 09:15 05/31/24 06:49 4 MG Diagnostic Test (Pha) 1 strip IQ4HR 05/30/24 04:00 05/31/24 12:10 1 STRIP Insulin Human Regular IQ4HR SC 05/30/24 04:00 05/31/24 12:10 6 UNITS Dextrose 50 ml UD PRN IV 05/30/24 02:30 Insulin Glargine 15 units HS SC 05/30/24 22:00 Sodium Chloride 1,000 ml @ 100 mls/hr Q10H IV 05/30/24 10:45 05/30/24 23:27 100 MLS/HR Pantoprazole Sodium 40 mg DAILY IV 05/31/24 10:00 05/31/24 07:48 40 MG Hydralazine HCl 10 mg Q6HP PRN IV 05/30/24 16:00 05/30/24 16:28 10 MG Magnesium Sulfate/ Dextrose 100 ml @ 100 mls/hr Q1HR IV 05/31/24 14:00 05/31/24 15:59 Hydromorphone HCl 0.25 mg Q4HPRN PRN IV 05/31/24 14:15 Prochlorperazine Edisylate 5 mg Q4HPRN PRN IV 05/31/24 14:15 UNV Examination: GENERAL:Normal, HEENT:Normal, NECK:Normal, LUNGS:Normal, CVS:Normal, ABDOMEN:Normal, MSK:Normal, SKIN:Normal, NEURO:Normal, :Normal laboratory and microbiology Laboratory Tests 05/31/24 11:53 05/31/24 05:35 Test 05/31/24 05:35 Range/Units Serum Glucose 168 H 74-106 mg/dL Problem List/Assessment/Plan Problem List/Assessment/Plan #1 dka: insulin, ivf #2 malfunctioning insulin pump #3 asthma #4 diabetic gastroparesis #5 severe hypokalemia: replace #6 low Mg/Phosp: replace advance care planning- full code- time spent 19 mins unstable for transfer Plan discussed with: Patient My Orders My Orders Orders - SHARONA ZAYAS MD Procedure Category Date Status Time Hydralazine Injection PHA 05/30/24 In Process (Apresoline Inject 16:00 Magnesium Sulfate PHA 05/31/24 In Process 1gm/100ml 14:00 Potassium Chloride PHA 05/31/24 In Process (Potassium Chloride). 13:30 Hydromorphone PHA 05/31/24 Logged Injection (Dilaudid 14:15 Prochlorperazine Inj PHA 05/31/24 Logged (Compazine Inj) 14:15 Sodium Phosphates PHA 05/31/24 Verified 14:45 Basic Metabolic Panel LAB 06/01/24 Verified 06:00 Magnesium LAB 06/01/24 Verified 05:00 Phosphorus LAB 06/01/24 Verified 06:00 Date of Service: May 31, 2024 Billing Provider: SHARONA ZAYAS MD Common Visit Codes: [id number] INP/OBS CARE(HIGH) Secondary Visit Codes: [id number] CARE PLAN 30 MINUTES SHARONA ZAYAS MD May 31, 2024 14:36
[2024-05-31] MEDS ORDERED: SODIUM PHOSPHATES 24 MEQ in SODIUM CHL 0.9% 100 ML IV ONE (14:45)
[2024-05-31] MEDS: HYDROmorphone HCL 2 MG/ML VL/or syr IV PRN (15:33)
[2024-05-31] MEDS: MAGNESIUM SULFATE 1GM/100ML 100 ML IV SCH (15:57)
[2024-05-31] MEDS: SODIUM PHOSPHATES 24 MEQ in SODIUM CHL 0.9% 100 ML IV ONE (20:30)
[2024-05-31] MEDS: PROCHLORPERAZINE EDISYLATE 5 MG/ML 2ML VIAL IV PRN (20:47)
[2024-06-01] VITALS (8 sets, daily range): BP systolic 132–160; BP diastolic 87–107; PULSE 75–97; RESP 16–20; TEMP 97.3–98.4; O2SAT 97–99
[2024-06-01] MEDS: TEMAZEPAM 15 MG CAP PO PRN (00:41)
[2024-06-01 06:33] LABS: Anion Gap 11 (5-15); Carbon Dioxide 24 mmol/L (20-31); Chloride 102 mmol/L (98-107); Sodium 137 mmol/L (136-145)
[2024-06-01 06:42] LABS: BUN/Creatinine Ratio 8.2 (10.0-20.0); Blood Urea Nitrogen < 5 mg/dL (9-23); Calcium 8.5 mg/dL (8.7-10.4); Glucose 194 mg/dL (74-106); Potassium 2.6 mmol/L (3.5-5.1)
--- NOTE | 2024-06-01 11:00 | DVHPN2 ---
Subjective Still complaining of nausea and vomiting then developed chest pressure pressure/pain at the end of the day Reviewed: Care Plan, H&P, Labs, Medications, Previous Orders, Radiology, Other (Consultation) Changes from previous H/P or p: No Changes Objective Vitals Vital Signs Date Time Temp Pulse Resp B/P (MAP) Pulse Ox O2 Delivery O2 Flow Rate FiO2 06/01/24 09:15 80 17 144/96 06/01/24 08:55 97.8 98 97.8 05/31/24 20:00 Room Air* 0 21 Intake/Output Intake and Output 06/01/24 07:00 Intake Total 3948 ml Output Total 2225 ml Balance 1723 ml Intake Oral 1650 ml IV Total 1273 ml Tube Feeding 1025 ml Output Urine Total 2225 ml # Voids 6 General Appearance: Alert, Oriented X3, Cooperative, mild distress HEENT: Atraumatic Lungs: Clear to auscultation, Normal air movement Cardiovascular: Regular rate, Normal S1, Normal S2 Abdomen: Normal bowel sounds, Soft, No tenderness Medications Current Medications Medications Dose Ordered Sig/Jaci Route Start Time Stop Time Status Last Admin Dose Admin Lorazepam 0.5 mg Q6HP PRN PO 05/29/24 09:15 Al Hydrox/Mg Hydrox/Simethicone 30 ml Q6HP PRN PO 05/29/24 09:15 Docusate Sodium 100 mg BIDPRN PRN PO 05/29/24 09:15 Acetaminophen 650 mg Q6HP PRN PO 05/29/24 09:15 Temazepam 15 mg QHSP PRN PO 05/29/24 09:15 06/01/24 00:41 15 MG Acetaminophen/ Hydrocodone Bitart 1 tab Q4HP PRN PO 05/29/24 09:15 05/31/24 23:40 1 TAB Ondansetron HCl 4 mg Q4HP PRN IV 05/29/24 09:15 Hold 05/31/24 06:49 4 MG Diagnostic Test (Pha) 1 strip IQ4HR 05/30/24 04:00 06/01/24 07:57 1 STRIP Insulin Human Regular IQ4HR SC 05/30/24 04:00 06/01/24 08:03 3 UNITS Dextrose 50 ml UD PRN IV 05/30/24 02:30 Insulin Glargine 15 units HS SC 05/30/24 22:00 05/31/24 21:04 15 UNITS Sodium Chloride 1,000 ml @ 100 mls/hr Q10H IV 05/30/24 10:45 06/01/24 02:45 100 MLS/HR Pantoprazole Sodium 40 mg DAILY IV 05/31/24 10:00 06/01/24 09:14 40 MG Hydralazine HCl 10 mg Q6HP PRN IV 05/30/24 16:00 05/30/24 16:28 10 MG Hydromorphone HCl 0.25 mg Q4HPRN PRN IV 05/31/24 14:15 06/01/24 09:15 0.25 MG Prochlorperazine Edisylate 5 mg Q4HPRN PRN IV 05/31/24 14:15 06/01/24 09:15 5 MG Laboratory Results Laboratory Tests 05/31/24 05:35 06/01/24 05:20 Chemistry Test 06/01/24 05:20 Calcium Level 8.5 mg/dL (8.7-10.4) L Magnesium Level 2.0 mg/dL (1.6-2.6) Phosphorus Level 3.0 mg/dL (2.4-5.1) Urinalysis Test 05/30/24 12:50 Urine Color Light-yellow (Yellow) Urine Clarity Clear (Clear) Urine pH 6.0 (5.0-9.0) Urine Specific [place] 1.019 (1.001-1.035) Urine Protein Trace (Negative) H Urine Ketones 3+ (Negative) H Urine Blood Negative /uL (Negative) Urine Nitrite Negative (Negative) Urine Bilirubin Negative (Negative) Urine Urobilinogen Normal mg/dL (Negative) Urine Leukocyte Esterase Negative /uL (Negative) Urine RBC <1 /hpf (0 - 3) Urine WBC 1 /hpf (0 - 3) Urine Squamous Epithelial Cells None seen /hpf (<5) Urine Bacteria None seen /hpf (None Seen) Urine Mucus Few (None Seen) Urine Glucose 2+ mg/dL (Normal) H Labs and/or images reviewed: Labs reviewed by me, Image(s) reviewed by me Assessment/Plan Assessment/Plan Covering Dr. Cuellar: #Chest pain; noncardiac as per cardiology; reviewed EKG and lab results;; most likely related to nausea and vomiting and electrolyte imbalance; continue monitoring #DKA due to uncontrolled diabetes mellitus type 1 in the setting of insulin pump malfunction; was on insulin infusion; continue current insulin treatment subcutaneously and adjust accordingly; continue monitoring #Nausea and vomiting in the setting of diabetic gastroparesis; continue current antiemetic medications; continue monitoring #Suspected sepsis in the setting of leukocytosis; unknown source; continue monitoring #Hypokalemia, hypomagnesemia, and hypophosphatemia; in the setting of GI losses; replace electrolytes as indicated; continue monitoring #ZACHARY; vasomotor nephropathy could not be ruled out; avoid nephrotoxic agents; continue monitoring #Hypertensive heart disease with chronic systolic and diastolic heart failure; not in exacerbation; continue current medical management including antihypertensive medications and adjust accordingly; telemetry; cardiology is following; reviewed echocardiogram; continue monitoring #Marijuana use disorder; counseled for 18 minutes on marijuana use cessation; continue monitoring #Asthma; not in exacerbation; continue monitoring #Malnutrition; encouraged to increase oral intake as tolerated; continue monitoring Electronics Detail Draftsperson consulted to transfer patient to [facility] as per insurance's preference Goals of care discussion for 20 minutes; full code Late Entry. This medical document was created using an electronic medical record system with computerized dictation system. Although this document has been carefully reviewed, there might still be some phonetic and typographical errors. These areas are purely typographical due to imperfections of the software programs, and do not reflect any compromise in the patient's medical care. Plan discussed with: Patient, Spouse, Daughter, Son, Other My Orders Orders - AIMEE CALLE MD Procedure Category Date Status Time * Electronics Detail Draftsperson CONS 06/01/24 Verified Consult Potassium Effervesent PHA 06/01/24 Verified Tab (Klor-Con/Ef) 11:00 Potassium Chl Edilberto PHA 06/01/24 Verified KCL 11:00 Complete Blood Count LAB 06/02/24 Verified 04:00 Comprehensive LAB 06/02/24 Verified Metabolic Panel 04:00 Magnesium LAB 06/02/24 Verified 04:00 Date of Service: Jun 01, 2024 Billing Provider: AIMEE CALLE MD Common Visit Codes: [id number] INP/OBS CARE(HIGH) Secondary Visit Codes: [id number] CHNG SMOKING >10MIN (Counseled on marijuana use cessation for 18 minutes), [id number] CARE PLAN 30 MINUTES (20 minutes) AIMEE CALLE MD Jun 01, 2024 11:00
[2024-06-01] MEDS: POTASSIUM CHLORIDE 40 MEQ, LIDOCAINE 1% (LOCAL ANESTH.) 4 ML in SODIUM CHL 0.9% 250 ML IV ONE (12:18)
[2024-06-01] MEDS: POTASSIUM EFFERVESENT TAB 25 MEQ PO ONE (12:39)
[2024-06-01] MEDS ORDERED: hydrALAZINE HCL 20 MG/ML VL IV PRN (18:00)
--- NOTE | 2024-06-01 18:26 | DVHINCON2 ---
Date Seen: Jun 01, 2024 Referring Physician MD Florecita Reason for Consultation Chest pain History of Present Illness This is a pleasant 44-year-old man who presented to the emergency room with a chief complaint of hyperglycemia. The patient who is type 1 diabetes mellitus presented with complaints of hyperglycemia given his insulin pump broke one week prior. Symptoms including nausea, vomiting, and polyuria. Upon EMS arrival he was found with a blood sugar level of 445 ng/dL for which he received NS times with 900 mLs, Tylenol 1 g, Zofran 8 mg, and underwent an unremarkable 12 lead electrocardiogram. The patient complains of chest pains earlier today for which he underwent a 12 lead electrocardiogram revealing a normal sinus rhythm without discernible ST segment changes. States his chest pain is triggered by vomiting or cough. Denied any further chest pain at time of assessment. He was also found with systolic blood pressures up to the 160s mmHg. Troponin levels are pending at this time. Significant medical history includes type 1 diabetes mellitus, gastroparesis, esophagitis, asthma, and cannabinoid use. Past Medical History Past medical history reviewed. No other significant than mentioned above. Past Surgical History Appendectomy Family History: Diabetes mellitus G8 MOTHER G8 FATHER Family History Family history reviewed. Social History Denies the use of alcohol or tobacco use. Admits to cannabinoid use. Allergies: Coded Allergies: NO KNOWN ALLERGIES (Unverified , 05/29/24) Home Meds Reported Medications Insulin Lispro (Human) (Humalog) 100 Unit/Ml Inj, SC 05/30/24 Home Meds Home medications reviewed. Review of Systems Constitutional: No symptom reported Ears, Nose, & Throat: No symptom reported Eyes: No symptom reported Neurological: No symptoms reported Pulmonary/Respiratory: No symptom reported Cardiovascular: No symptom reported Gastrointestinal: No symptom reported Genitourinary: No symptom reported Musculoskeletal: Chest wall pain Skin: No symptom reported Psychiatric: No symptom reported Endocrine: No symptom reported Hemotologic/Lymphatic: No symptom reported Vital Signs Vital Signs Date Time Temp Pulse Resp B/P (MAP) Pulse Ox O2 Delivery O2 Flow Rate FiO2 06/01/24 15:42 98.4 75 17 158/99 (118) 98 98.4 06/01/24 08:00 Room Air* 0 21 Physical Exam General Appearance: Cooperative. Well developed. Well nourished. In no acute distress Head Exam: Normal inspection Neck Exam: Normal inspection. Non-tender. Normal alignment Pulmonary/Respiratory: Chest non-tender. Clear bilateral breath sounds Cardiovascular/Chest: Regular rate and rhythm. S1, S2. NSR. No murmurs. No JVD. Peripheral Pulses: 2+ Radial (R). 2+ Radial (L). 2+ Pedal (R). 2+ Pedal (L) Abdominal Exam: Normal bowel sounds. Soft. Nontender. No hepatospenomegaly. No masses Ankle Exam: Negative ankle edema Lower extremities: Negative lower extremity edema Neuro/Mental Status: A&O x4. Coherent Thoughts/Psych: Normal thought pattern. Appropriate mood and affect. Good judgement and insight Appearance: In no acute distress Skin Exam: Normal inspection. Normal color. Warm. Dry Labs/Diagnostic Data Labs Test 06/01/24 16:40 06/01/24 05:20 05/31/24 05:35 05/30/24 12:50 Range/Units POC Glucose 214 H 70-106 mg/dl Sodium Level 137 136-145 mmol/L Potassium Level 2.6 L 3.5-5.1 mmol/L Chloride Level 102 98-107 mmol/L Carbon Dioxide Level 24 20-31 mmol/L Anion Gap 11 5-15 Blood Urea Nitrogen < 5 L 9-23 mg/dL Creatinine 0.61 L 0.700-1.30 mg/dL Glomerular Filtration Rate Calc 121 >90 mL/min BUN/Creatinine Ratio 8.2 L 10.0-20.0 Serum Glucose 194 H 74-106 mg/dL Calcium Level 8.5 L 8.7-10.4 mg/dL Phosphorus Level 3.0 2.4-5.1 mg/dL Magnesium Level 2.0 1.6-2.6 mg/dL White Blood Count 7.6 # 4.4-10.8 10^3/uL Red Blood Count 4.08 L 4.5-5.90 10^6/uL Hemoglobin 12.1 L 13.5-17.5 g/dL Hematocrit 33.7 #L 41.0-53.0 % Mean Corpuscular Volume 82.6 80.0-100.0 fL Mean Corpuscular Hemoglobin 29.6 28.0-32.0 pg Mean Corpuscular Hemoglobin Concent 35.9 32.0-36.0 g/dL Red Cell Distribution Width 14.2 11.8-14.3 % Platelet Count 203 140-450 10^3/uL Mean Platelet Volume 8.8 6.9-10.8 fL Neutrophils (%) (Auto) 77.8 37.0-80.0 % Lymphocytes (%) (Auto) 11.2 10.0-50.0 % Monocytes (%) (Auto) 10.8 0.0-12.0 % Eosinophils (%) (Auto) 0.1 0.0-7.0 % Basophils (%) (Auto) 0.1 0.0-2.0 % Neutrophils # (Auto) 5.9 1.6-8.6 10 ^3/uL Lymphocytes # (Auto) 0.9 0.4-5.4 10 ^3/uL Monocytes # (Auto) 0.8 0-1.3 10 ^3/uL Eosinophils # (Auto) 0 0-0.8 10 ^3/uL Basophils # (Auto) 0 0-0.2 10 ^3/uL Nucleated Red Blood Cells 0.1 % Total Bilirubin 1.7 H 0.2-1.0 mg/dL Aspartate Amino Transferase (AST) 9 L 13-40 U/L Alanine Aminotransferase (ALT) < 9 7-40 U/L Alkaline Phosphatase 46 46-116 U/L Total Protein 4.9 L 5.7-8.2 g/dL Albumin 3.4 3.2-4.8 g/dL Urine Color Light-yellow Yellow Urine Clarity Clear Clear Urine pH 6.0 5.0-9.0 Urine Specific [place] 1.019 1.001-1.035 Urine Protein Trace H Negative Urine Ketones 3+ H Negative Urine Blood Negative Negative /uL Urine Nitrite Negative Negative Urine Bilirubin Negative Negative Urine Urobilinogen Normal Negative mg/dL Urine Leukocyte Esterase Negative Negative /uL Urine RBC <1 0 - 3 /hpf Urine WBC 1 0 - 3 /hpf Urine Squamous Epithelial Cells None seen <5 /hpf Urine Bacteria None seen None Seen /hpf Urine Mucus Few None Seen Urine Glucose 2+ H Normal mg/dL Urine Opiates Screen Pos NEGATIVE Urine Fentanyl Screen Neg NEGATIVE Urine Barbiturates Screen Neg NEGATIVE Urine Phencyclidine Screen Neg NEGATIVE Urine Amphetamines Screen Neg NEGATIVE Urine Benzodiazepines Screen Neg NEGATIVE Urine Cocaine Screen Neg NEGATIVE Urine Cannabinoids Screen Pos NEGATIVE Test 05/29/24 07:55 Range/Units Differential Total Cells Counted 100.0 100 Neutrophils % (Manual) 79 37.0-80.0 Band Neutrophils % (Manual) 4 Lymphocytes % (Manual) 3 L 10.0-50.0 Monocytes % (Manual) 14 H 0-12 Eosinophils % (Manual) 0 0-7 Basophils % (Manual) 0 0.0-2.0 Metamyelocytes % (manual) 0 Myelocytes % (Manual) 0 Promyelocytes % (Manual) 0 Blast Cells % (Manual) 0 Reactive Lymphocytes 0 Platelet Estimate Adequate Blood Gas Specimen Type Arterial Blood Gas Sample Site Left radial Blood Gas Patient Temperature 37.0 Arterial Blood Date Drawn [id number] Arterial Blood pH 7.105 *L 7.350-7.450 Arterial Blood Partial Pressure CO2 < 12.6 *L 35.0-48.0 mmHg Arterial Blood Partial Pressure O2 103.9 83.0-108.0 mmHg Arterial Blood Oxygen Saturation 97.4 94.0-98.0 % Arterial Blood Oxyhemoglobin 96.3 94.0-98.0 % Arterial Blood Carboxyhemoglobin 0.6 0.5-1.5 % Arterial Blood Methemoglobin 0.5 0.0-1.5 % Gil Test Modified Blood Gas Total Hemoglobin 15.70 13.5-17.5 g/dL Blood Gas Liter Flow 2.00 Blood Gas Modality Nasal cannula FiO2 % 28.0 Blood Gas Critical Value Read Back Yes Blood Gas Notified Whom Blood Gas Notified Time [id number] Blood Gas Notified By Operators School Manager parisa Beta-Hydroxybutyric Acid > 4.500 H < 0.4 mmol/L Assessment Noncardiac chest pain Hypertensive urgency Diabetic ketoacidosis Type 1 diabetes mellitus Severe hypokalemia Cannabinoid use Plan/Recommendation (Dr. Cueva) The patient presents with noncardiac chest pain which is triggered by vomiting and cough. He was also found with hypertensive urgency which could exacerbate chest pain symptoms. We recommend aggressive blood pressure control as well as electrolyte replacement as necessary given severe hypokalemia. Continue tight glycemic control. Primary care team to follow on HgbA1C, lipid panel, and TSH levels. There is no further cardiac workup indicated at this time. Thank you for allowing us to participate in this patient's care. Please call if you have any questions or concerns. This medical document was created using an electronic medical record system with voice recognition software and computerized dictation system. Although this document has been carefully reviewed, there might still be some phonetic and typographical errors. Occasional wrong-word or ``sound-alike substitutions may have occurred due to the inherent limitations of voice recognition software. These areas are purely typographical due to imperfections of the software programs and do not reflect any compromise in the patient's medical care. Please read the chart carefully and recognize, using context, where these substitutions have occurred. Plan discussed with: Patient, Other Date of Service: Jun 01, 2024 Billing Provider: BENITA CUEVA MD Cardiology Common Codes: [id number] INP/OBS CARE (High) BELGICA FROST SHEARING SHED WORKER Jun 01, 2024 18:26
[2024-06-01] MEDS: LOSARTAN POTASSIUM 25 MG TAB PO ONE (18:42)
--- NOTE | 2024-06-01 19:09 | DVHDS2 ---
Discharge Summary Date of Admission May 29, 2024 at 09:11 Labs/Diagnostic Data: Laboratory Results Test 06/01/24 16:40 06/01/24 05:20 05/31/24 05:35 05/30/24 12:50 POC Glucose 214 mg/dl (70-106) Sodium Level 137 mmol/L (136-145) Potassium Level 2.6 mmol/L (3.5-5.1) Chloride Level 102 mmol/L (98-107) Carbon Dioxide Level 24 mmol/L (20-31) Anion Gap 11 (5-15) Blood Urea Nitrogen < 5 mg/dL (9-23) Creatinine 0.61 mg/dL (0.700-1.30) Glomerular Filtration Rate Calc 121 mL/min (>90) BUN/Creatinine Ratio 8.2 (10.0-20.0) Serum Glucose 194 mg/dL (74-106) Calcium Level 8.5 mg/dL (8.7-10.4) Phosphorus Level 3.0 mg/dL (2.4-5.1) Magnesium Level 2.0 mg/dL (1.6-2.6) White Blood Count 7.6 10^3/uL (4.4-10.8) Red Blood Count 4.08 10^6/uL (4.5-5.90) Hemoglobin 12.1 g/dL (13.5-17.5) Hematocrit 33.7 % (41.0-53.0) Mean Corpuscular Volume 82.6 fL (80.0-100.0) Mean Corpuscular Hemoglobin 29.6 pg (28.0-32.0) Mean Corpuscular Hemoglobin Concent 35.9 g/dL (32.0-36.0) Red Cell Distribution Width 14.2 % (11.8-14.3) Platelet Count 203 10^3/uL (140-450) Mean Platelet Volume 8.8 fL (6.9-10.8) Neutrophils (%) (Auto) 77.8 % (37.0-80.0) Lymphocytes (%) (Auto) 11.2 % (10.0-50.0) Monocytes (%) (Auto) 10.8 % (0.0-12.0) Eosinophils (%) (Auto) 0.1 % (0.0-7.0) Basophils (%) (Auto) 0.1 % (0.0-2.0) Neutrophils # (Auto) 5.9 10 ^3/uL (1.6-8.6) Lymphocytes # (Auto) 0.9 10 ^3/uL (0.4-5.4) Monocytes # (Auto) 0.8 10 ^3/uL (0-1.3) Eosinophils # (Auto) 0 10 ^3/uL (0-0.8) Basophils # (Auto) 0 10 ^3/uL (0-0.2) Nucleated Red Blood Cells 0.1 % Total Bilirubin 1.7 mg/dL (0.2-1.0) Aspartate Amino Transferase (AST) 9 U/L (13-40) Alanine Aminotransferase (ALT) < 9 U/L (7-40) Alkaline Phosphatase 46 U/L (46-116) Total Protein 4.9 g/dL (5.7-8.2) Albumin 3.4 g/dL (3.2-4.8) Urine Color Light-yellow (Yellow) Urine Clarity Clear (Clear) Urine pH 6.0 (5.0-9.0) Urine Specific [place] 1.019 (1.001-1.035) Urine Protein Trace (Negative) Urine Ketones 3+ (Negative) Urine Blood Negative /uL (Negative) Urine Nitrite Negative (Negative) Urine Bilirubin Negative (Negative) Urine Urobilinogen Normal mg/dL (Negative) Urine Leukocyte Esterase Negative /uL (Negative) Urine RBC <1 /hpf (0 - 3) Urine WBC 1 /hpf (0 - 3) Urine Squamous Epithelial Cells None seen /hpf (<5) Urine Bacteria None seen /hpf (None Seen) Urine Mucus Few (None Seen) Urine Glucose 2+ mg/dL (Normal) Urine Opiates Screen Pos (NEGATIVE) Urine Fentanyl Screen Neg (NEGATIVE) Urine Barbiturates Screen Neg (NEGATIVE) Urine Phencyclidine Screen Neg (NEGATIVE) Urine Amphetamines Screen Neg (NEGATIVE) Urine Benzodiazepines Screen Neg (NEGATIVE) Urine Cocaine Screen Neg (NEGATIVE) Urine Cannabinoids Screen Pos (NEGATIVE) Test 05/29/24 07:55 Differential Total Cells Counted 100.0 (100) Neutrophils % (Manual) 79 (37.0-80.0) Band Neutrophils % (Manual) 4 Lymphocytes % (Manual) 3 (10.0-50.0) Monocytes % (Manual) 14 (0-12) Eosinophils % (Manual) 0 (0-7) Basophils % (Manual) 0 (0.0-2.0) Metamyelocytes % (manual) 0 Myelocytes % (Manual) 0 Promyelocytes % (Manual) 0 Blast Cells % (Manual) 0 Reactive Lymphocytes 0 Platelet Estimate Adequate Blood Gas Specimen Type Arterial Blood Gas Sample Site Left radial Blood Gas Patient Temperature 37.0 Arterial Blood Date Drawn [id number] Arterial Blood pH 7.105 (7.350-7.450) Arterial Blood Partial Pressure CO2 < 12.6 mmHg (35.0-48.0) Arterial Blood Partial Pressure O2 103.9 mmHg (83.0-108.0) Arterial Blood Oxygen Saturation 97.4 % (94.0-98.0) Arterial Blood Oxyhemoglobin 96.3 % (94.0-98.0) Arterial Blood Carboxyhemoglobin 0.6 % (0.5-1.5) Arterial Blood Methemoglobin 0.5 % (0.0-1.5) Gil Test Modified Blood Gas Total Hemoglobin 15.70 g/dL (13.5-17.5) Blood Gas Liter Flow 2.00 Blood Gas Modality Nasal cannula FiO2 % 28.0 Blood Gas Critical Value Read Back Yes Blood Gas Notified Whom Blood Gas Notified Time [id number] Blood Gas Notified By Jewel Bearing Facer parisa Beta-Hydroxybutyric Acid > 4.500 mmol/L (< 0.4) Other Laboratory Tests 06/01/24 05:20 05/31/24 05:35 Discharge Statement: "Patient was advised to return to the ER or call 911 if any headaches, dizziness, shortness of breath, chest pain, abdominal pain, bleeding, fevers, or worsening of medical condition. Patient was counseled about treatment plan, medications, possible side effects, patientverbalized understanding. All questions were answered to the best of my ability. This discharge took greater then 30 minutes in planning, reviewing documentation, counseling the patient, and discussing with other team members." ASSESSMENT ASSESSMENT Assessment AIMEE CALLE MD Jun 01, 2024 19:09
[2024-06-02 05:00] VITALS: BP 114/73; PULSE 88; RESP 16; TEMP 98.4; O2SAT 97
[2024-06-02 06:22] LABS: Basophils # (auto) 0 10 ^3/uL (0-0.2); Basophils % (auto) 0.3 % (0.0-2.0); Eosinophils # (auto) 0.2 10 ^3/uL (0-0.8); Eosinophils % (auto) 3.2 % (0.0-7.0); Lymphocytes # (auto) 1.1 10 ^3/uL (0.4-5.4); Lymphocytes % (auto) 16.6 % (10.0-50.0); Neutrophils # (auto) 4.1 10 ^3/uL (1.6-8.6)
[2024-06-02 06:24] LABS: Hematocrit 34.3 % (41.0-53.0); Hemoglobin 12.9 g/dL (13.5-17.5); Mean Corpuscular Hemoglobin 30.6 pg (28.0-32.0); Mean Corpuscular Volume 81.2 fL (80.0-100.0); Monocytes % (auto) 16.1 % (0.0-12.0); Neutrophils % (auto) 63.8 % (37.0-80.0); Platelet Count (auto) 188 10^3/uL (140-450); Red Blood Cells 4.23 10^6/uL (4.5-5.90); Red Cell Distribution Width 14.3 % (11.8-14.3); White Blood Cell 6.5 10^3/uL (4.4-10.8)
[2024-06-02 06:38] LABS: Albumin 3.5 g/dL (3.2-4.8); Alkaline Phosphatase 52 U/L (46-116); Anion Gap 8 (5-15); BUN/Creatinine Ratio 10.5 (10.0-20.0); Carbon Dioxide 27 mmol/L (20-31); Chloride 103 mmol/L (98-107); LDL Cholesterol 80 mg/dL (< 100); Sodium 138 mmol/L (136-145); Triglycerides 88 mg/dL (< 150)
[2024-06-02 06:39] LABS: Cholesterol 163 mg/dL (< 200); HDL Cholesterol 55 mg/dL (40-59)
[2024-06-02 06:44] LABS: Alanine Aminotransferase < 9 U/L (7-40); Aspartate Aminotransferase 8 U/L (13-40); Bilirubin, Total 1.3 mg/dL (0.2-1.0); Blood Urea Nitrogen 6 mg/dL (9-23); Glucose 196 mg/dL (74-106); Potassium 2.9 mmol/L (3.5-5.1); Total Protein 5.3 g/dL (5.7-8.2)
[2024-06-02 07:17] LABS: Mean Corpuscular Hgb Conc. 37.7 g/dL (32.0-36.0)
[2024-06-02 07:57] LABS: Anisocytosis Slight; Platelet Estimate Adequate
[2024-06-02 08:00] VITALS: PULSE 81; RESP 16
[2024-06-02 09:00] VITALS: BP 113/73; PULSE 85; RESP 18; TEMP 98.2; O2SAT 97
[2024-06-02] MEDS: LOSARTAN POTASSIUM 25 MG TAB PO SCH (09:14)
--- NOTE | 2024-06-02 12:14 | DVHPN2 ---
Eyes: No Pain, No Vision change, No Conjunctivae inflammation, No Eyelid inflammation, No Other, No Redness ENT: No Ear pain, No Ear discharge, No Nose pain, No Nose discharge, No Nose congestion, No Mouth pain, No Mouth swelling, No Throat pain, No Throat swelling, No Other Cardiovascular: No Chest Pain, No Palpitations, No Orthopnea, No Paroxysmal Noc. Dyspnea, No Edema, No Lt Headedness, No Other Respiratory: No Cough, No Dry, No Shortness of breath, No SOB with excertion, No Wheezing, No Hemoptysis, No Pleuritic Pain, No Sputum, No Other Gastrointestinal: No Nausea, No Vomiting, No Abdominal Pain, No Diarrhea, No Constipation, No Melena, No Hematochezia, No Other Genitourinary: No Dysuria; Frequency, Incontinence; No Hematuria, No Retention, No Other Musculoskeletal: No other, No neck pain, No shoulder pain, No arm pain, No back pain, No hand pain, No leg pain, No foot pain Skin: No Rash, No Lesions, No Jaundice, No Bruising, No Other Objective Vitals Vital Signs Date Time Temp Pulse Resp B/P (MAP) Pulse Ox O2 Delivery O2 Flow Rate FiO2 06/02/24 09:14 113/73 06/02/24 09:14 83 18 06/02/24 09:00 98.2 97 98.2 06/01/24 20:00 Room Air* 0 21 Intake/Output Intake and Output 06/02/24 07:00 Intake Total 920 ml Output Total 3680 ml Balance -2760 ml Intake Oral 920 ml Output Urine Total 3680 ml Medications Current Medications Medications Dose Ordered Sig/Jaci Route Start Time Stop Time Status Last Admin Dose Admin Lorazepam 0.5 mg Q6HP PRN PO 05/29/24 09:15 Al Hydrox/Mg Hydrox/Simethicone 30 ml Q6HP PRN PO 05/29/24 09:15 Docusate Sodium 100 mg BIDPRN PRN PO 05/29/24 09:15 Acetaminophen 650 mg Q6HP PRN PO 05/29/24 09:15 Temazepam 15 mg QHSP PRN PO 05/29/24 09:15 06/01/24 00:41 15 MG Acetaminophen/ Hydrocodone Bitart 1 tab Q4HP PRN PO 05/29/24 09:15 05/31/24 23:40 1 TAB Ondansetron HCl 4 mg Q4HP PRN IV 05/29/24 09:15 Hold 05/31/24 06:49 4 MG Diagnostic Test (Pha) 1 strip IQ4HR 05/30/24 04:00 06/02/24 11:49 1 STRIP Insulin Human Regular IQ4HR SC 05/30/24 04:00 06/02/24 11:48 2 UNITS Dextrose 50 ml UD PRN IV 05/30/24 02:30 Insulin Glargine 15 units HS SC 05/30/24 22:00 05/31/24 21:04 15 UNITS Sodium Chloride 1,000 ml @ 100 mls/hr Q10H IV 05/30/24 10:45 06/02/24 05:35 100 MLS/HR Pantoprazole Sodium 40 mg DAILY IV 05/31/24 10:00 06/02/24 09:13 40 MG Hydralazine HCl 10 mg Q6HP PRN IV 05/30/24 16:00 06/01/24 20:35 10 MG Hydromorphone HCl 0.25 mg Q4HPRN PRN IV 05/31/24 14:15 06/02/24 09:14 0.25 MG Prochlorperazine Edisylate 5 mg Q4HPRN PRN IV 05/31/24 14:15 06/02/24 09:13 5 MG Losartan Potassium 25 mg DAILY PO 06/02/24 10:00 06/02/24 09:14 25 MG Hydralazine HCl 10 mg Q6HP PRN IV 06/01/24 18:00 Laboratory Results Laboratory Tests 06/02/24 05:36 Chemistry Test 06/02/24 05:36 Albumin 3.5 g/dL (3.2-4.8) Calcium Level 9.0 mg/dL (8.7-10.4) Magnesium Level 2.0 mg/dL (1.6-2.6) Total Protein 5.3 g/dL (5.7-8.2) L Lipid panel Test 06/02/24 05:36 Cholesterol Level 163 mg/dL (< 200) HDL Cholesterol 55 mg/dL (40-59) Triglycerides Level 88 mg/dL (< 150) LFT Test 06/02/24 05:36 Alanine Aminotransferase (ALT) < 9 U/L (7-40) Alkaline Phosphatase 52 U/L (46-116) Aspartate Amino Transferase (AST) 8 U/L (13-40) L Total Bilirubin 1.3 mg/dL (0.2-1.0) H HgA1c, TSH Test 06/02/24 05:36 Hemoglobin A1c 6.9 % A1C (<5.7) H Thyroid Stimulating Hormone (TSH) 0.29 uIU/mL (0.55-4.78) L Urinalysis Test 05/30/24 12:50 Urine Color Light-yellow (Yellow) Urine Clarity Clear (Clear) Urine pH 6.0 (5.0-9.0) Urine Specific [place] 1.019 (1.001-1.035) Urine Protein Trace (Negative) H Urine Ketones 3+ (Negative) H Urine Blood Negative /uL (Negative) Urine Nitrite Negative (Negative) Urine Bilirubin Negative (Negative) Urine Urobilinogen Normal mg/dL (Negative) Urine Leukocyte Esterase Negative /uL (Negative) Urine RBC <1 /hpf (0 - 3) Urine WBC 1 /hpf (0 - 3) Urine Squamous Epithelial Cells None seen /hpf (<5) Urine Bacteria None seen /hpf (None Seen) Urine Mucus Few (None Seen) Urine Glucose 2+ mg/dL (Normal) H NAVJOT REED MD Jun 02, 2024 12:14
[2024-06-02] MEDS ORDERED: POTASSIUM CHL 20 Meq TABLET PO ONE ×2 (12:15→14:15)
[2024-06-02 12:46] VITALS: BP 140/89; PULSE 78; RESP 20; TEMP 97.9; O2SAT 98
--- NOTE | 2024-06-02 13:33 | DVHSR ---
APPROVED REPORT EXAM: Two-dimensional and M-mode echocardiogram with Doppler and color Doppler. Blood Pressure: 114/73 mmHg INDICATION Chest Pain RISK FACTORS Height: 5' 10", Weight: 126 DIMENSIONS LVDd4.6 (3.8-5.7cm)LA (2D)3.7 (1.9-4.0cm)Aortic Root3.6 (2.0-3.7cm) LVDs3.6 (2.5-4.0cm)LA (MM) (1.9-4.0cm)Aortic Cusp Exc1.8 (1.5-2.0cm) EF (%) 45.0 (55-70%)Rt. Atrium3.5 (1.9-4.0cm)Asc. Aorta cm IVSd1.2 (0.7-1.1cm)RV (D) (1.8-2.4cm) PWd1.2 (0.7-1.1cm) Mitral Valve MitralMitral Stenosis E wave0.50m/sMV Mean GR.mmHg A wave0.90m/sMV Peak GR.mmHg E/A ratio0.62D MVAcm2 Aortic Valve Aortic ValveAortic Stenosis V10.70m/Lizabeth Mean GR.2mmHg V20.80m/Lizabeth Peak GR.3mmHg LVOT Diameter2.5 (1.8-2.4cm)Doppler AVA4.29cm2 Pulmonic Valve V20.40m/s Conclusion Normal left ventricular size and dimension. Mildly reduced left ventricular systolic function estima lara ejection fraction of 45% in a global fashion.. There is a grade 1 diastolic dysfunction. Normal right ventricular size and dimension. Normal right ventricular systolic function. Normal biatrial size and dimension. Normal aortic valve structure and function. Normal mitral valve structure and function. Normal tricuspid valve structure and function. There is trivial tricuspid valve regurgitation. The pulmonary valve is grossly normal. No pericardial effusion.
--- NOTE | 2024-06-04 14:35 | DVHDS2 ---
Discharge Summary Date of Admission May 29, 2024 at 09:11 Date of Discharge: Jun 02, 2024 Admitting Diagnosis #Chest pain; noncardiac as per cardiology; #DKA due to uncontrolled diabetes mellitus type 1 #Nausea and vomiting in the setting of diabetic gastroparesis #Suspected sepsis in the setting of leukocytosis; unknown source #Hypokalemia, hypomagnesemia, and hypophosphatemia; in the setting of GI losses; #ZACHARY; vasomotor #Hypertensive heart disease with chronic systolic and diastolic heart failure; not in exacerbation; #Marijuana use disorder; #Asthma; #Malnutrition; Labs/Diagnostic Data: Laboratory Results Test 06/02/24 11:41 06/02/24 05:36 06/01/24 22:55 06/01/24 05:20 POC Glucose 143 mg/dl (70-106) White Blood Count 6.5 10^3/uL (4.4-10.8) Red Blood Count 4.23 10^6/uL (4.5-5.90) Hemoglobin 12.9 g/dL (13.5-17.5) Hematocrit 34.3 % (41.0-53.0) Mean Corpuscular Volume 81.2 fL (80.0-100.0) Mean Corpuscular Hemoglobin 30.6 pg (28.0-32.0) Mean Corpuscular Hemoglobin Concent 37.7 g/dL (32.0-36.0) Red Cell Distribution Width 14.3 % (11.8-14.3) Platelet Count 188 10^3/uL (140-450) Mean Platelet Volume 8.6 fL (6.9-10.8) Neutrophils (%) (Auto) 63.8 % (37.0-80.0) Lymphocytes (%) (Auto) 16.6 % (10.0-50.0) Monocytes (%) (Auto) 16.1 % (0.0-12.0) Eosinophils (%) (Auto) 3.2 % (0.0-7.0) Basophils (%) (Auto) 0.3 % (0.0-2.0) Neutrophils # (Auto) 4.1 10 ^3/uL (1.6-8.6) Lymphocytes # (Auto) 1.1 10 ^3/uL (0.4-5.4) Monocytes # (Auto) 1.0 10 ^3/uL (0-1.3) Eosinophils # (Auto) 0.2 10 ^3/uL (0-0.8) Basophils # (Auto) 0 10 ^3/uL (0-0.2) Nucleated Red Blood Cells 0.0 % Platelet Estimate Adequate Anisocytosis (manual) Slight Sodium Level 138 mmol/L (136-145) Potassium Level 2.9 mmol/L (3.5-5.1) Chloride Level 103 mmol/L (98-107) Carbon Dioxide Level 27 mmol/L (20-31) Anion Gap 8 (5-15) Blood Urea Nitrogen 6 mg/dL (9-23) Creatinine 0.57 mg/dL (0.700-1.30) Glomerular Filtration Rate Calc 123 mL/min (>90) BUN/Creatinine Ratio 10.5 (10.0-20.0) Serum Glucose 196 mg/dL (74-106) Hemoglobin A1c 6.9 % A1C (<5.7) Calcium Level 9.0 mg/dL (8.7-10.4) Magnesium Level 2.0 mg/dL (1.6-2.6) Total Bilirubin 1.3 mg/dL (0.2-1.0) Aspartate Amino Transferase (AST) 8 U/L (13-40) Alanine Aminotransferase (ALT) < 9 U/L (7-40) Alkaline Phosphatase 52 U/L (46-116) Total Protein 5.3 g/dL (5.7-8.2) Albumin 3.5 g/dL (3.2-4.8) Triglycerides Level 88 mg/dL (< 150) Cholesterol Level 163 mg/dL (< 200) LDL Cholesterol 80 mg/dL (< 100) HDL Cholesterol 55 mg/dL (40-59) Thyroid Stimulating Hormone (TSH) 0.29 uIU/mL (0.55-4.78) Troponin I High Sensitivity 8 ng/L (</=54) Phosphorus Level 3.0 mg/dL (2.4-5.1) Test 05/30/24 12:50 05/29/24 07:55 Urine Color Light-yellow (Yellow) Urine Clarity Clear (Clear) Urine pH 6.0 (5.0-9.0) Urine Specific [place] 1.019 (1.001-1.035) Urine Protein Trace (Negative) Urine Ketones 3+ (Negative) Urine Blood Negative /uL (Negative) Urine Nitrite Negative (Negative) Urine Bilirubin Negative (Negative) Urine Urobilinogen Normal mg/dL (Negative) Urine Leukocyte Esterase Negative /uL (Negative) Urine RBC <1 /hpf (0 - 3) Urine WBC 1 /hpf (0 - 3) Urine Squamous Epithelial Cells None seen /hpf (<5) Urine Bacteria None seen /hpf (None Seen) Urine Mucus Few (None Seen) Urine Glucose 2+ mg/dL (Normal) Urine Opiates Screen Pos (NEGATIVE) Urine Fentanyl Screen Neg (NEGATIVE) Urine Barbiturates Screen Neg (NEGATIVE) Urine Phencyclidine Screen Neg (NEGATIVE) Urine Amphetamines Screen Neg (NEGATIVE) Urine Benzodiazepines Screen Neg (NEGATIVE) Urine Cocaine Screen Neg (NEGATIVE) Urine Cannabinoids Screen Pos (NEGATIVE) Differential Total Cells Counted 100.0 (100) Neutrophils % (Manual) 79 (37.0-80.0) Band Neutrophils % (Manual) 4 Lymphocytes % (Manual) 3 (10.0-50.0) Monocytes % (Manual) 14 (0-12) Eosinophils % (Manual) 0 (0-7) Basophils % (Manual) 0 (0.0-2.0) Metamyelocytes % (manual) 0 Myelocytes % (Manual) 0 Promyelocytes % (Manual) 0 Blast Cells % (Manual) 0 Reactive Lymphocytes 0 Blood Gas Specimen Type Arterial Blood Gas Sample Site Left radial Blood Gas Patient Temperature 37.0 Arterial Blood Date Drawn [id number] Arterial Blood pH 7.105 (7.350-7.450) Arterial Blood Partial Pressure CO2 < 12.6 mmHg (35.0-48.0) Arterial Blood Partial Pressure O2 103.9 mmHg (83.0-108.0) Arterial Blood Oxygen Saturation 97.4 % (94.0-98.0) Arterial Blood Oxyhemoglobin 96.3 % (94.0-98.0) Arterial Blood Carboxyhemoglobin 0.6 % (0.5-1.5) Arterial Blood Methemoglobin 0.5 % (0.0-1.5) Gil Test Modified Blood Gas Total Hemoglobin 15.70 g/dL (13.5-17.5) Blood Gas Liter Flow 2.00 Blood Gas Modality Nasal cannula FiO2 % 28.0 Blood Gas Critical Value Read Back Yes Blood Gas Notified Whom Blood Gas Notified Time [id number] Blood Gas Notified By Corporate Planning Manager parisa Beta-Hydroxybutyric Acid > 4.500 mmol/L (< 0.4) Other Laboratory Tests 06/02/24 05:36 Brief Hx & Hospital Course: This is a 44 years old male with past medical history diabetes type 1, asthma, came to emergency department because his insulin pump had broke for one week. He is not able to replace the pump and his blood glucose increase up to 500 all week. Patient was shaky, nausea, vomiting and abdominal pain. Patient was admitted for DKA. Subsequently was switched to sliding scale insulin and Lantus. We still work to adjust his blood glucose because is still remained fluctuating up and down between 150-250. The patient however grew inpatient and decided to leave against medical advice. He verbally understand and stated that if he leaves in his insulin pump is not working , he might have another DKA and back to the hospital. He will make more harm to his body and DKA can cause however he still choose to leave against medical advice without having any insulin written at home. He said he wanted his pump fixed but it is not fixed he not taking any other medication because insulin injection is not working for him only the pump work. I explained to him that in the hospital he had been taking sliding scale insulin and Lantus and his blood glucose is controlled however still fluctuating we still need to readjust a when is stable I plan to send him home with Lantus and sliding scale insulin until his insulin pump fix. Patient refused and left against medical advice. Physical exam: HEENT: Normocephalic atraumatic pupils equal react to light and accommodation. Extraocular muscles intact, conjunctiva pink, oropharynx moist, no thrush, no exudate. Lymphatic: No lymphadenopathy Cardiovascular exam: S1, S2 was heard. No murmurs, rubs, gallops Lung: Clear on auscultation bilaterally, no wheeze, rale, rhonchi. GI: Abdominal soft, nondistended, nontenderness, positive bowel sounds. Extremity: No crepitus, cyanosis, edema. Pedal pulses present bilateral. Full range of motion. Skin: Normal turgor, no rash. Psych: Alert, oriented x3. Neurology: No focal deficits, cranial nerve II to XII grossly intact. This medical document was created using an electronic medical record system with [employer] direct computerized dictation system. Although this document has been carefully reviewed, there may still be some phonetic and typographical errors. These areas are purely typographical due to imperfections of the software programs, and do not reflect any compromise in the patient's medical care. Condition at Discharge: Guarded Final Diagnosis/Problems List #Chest pain; noncardiac as per cardiology; #DKA due to uncontrolled diabetes mellitus type 1 #Nausea and vomiting in the setting of diabetic gastroparesis #Suspected sepsis in the setting of leukocytosis; unknown source #Hypokalemia, hypomagnesemia, and hypophosphatemia; in the setting of GI losses; #ZACHARY; vasomotor #Hypertensive heart disease with chronic systolic and diastolic heart failure; not in exacerbation; #Marijuana use disorder; #Asthma; #Malnutrition; Discharge Disposition: AMA Discharge Statement: "Patient was advised to return to the ER or call 911 if any headaches, dizziness, shortness of breath, chest pain, abdominal pain, bleeding, fevers, or worsening of medical condition. Patient was counseled about treatment plan, medications, possible side effects, patientverbalized understanding. All questions were answered to the best of my ability. This discharge took greater then 30 minutes in planning, reviewing documentation, counseling the patient, and discussing with other team members." ASSESSMENT ASSESSMENT Assessment Date of Service: Jun 02, 2024 Billing Provider: NAVJOT REED MD Common Visit Codes: 34989-AGW/OBS DISCH DAY >30min NAVJOT REED MD Jun 04, 2024 14:35
== END 2024-06-02 12:50 | disposition left against medical advice (07) | DRG 871 ==
LOC: EDBD 07:39 → ER 07:39 → TELE 09:11 → TELE-WESTW 05-30 15:39
PROVIDERS: ADMIT Hospitalist; ATTEND Internal Medicine
DX: A41.9 Sepsis, unspecified organism (principal); E10.11 Type 1 diabetes mellitus with ketoacidosis with coma; N17.0 Acute kidney failure with tubular necrosis; I50.42 Chronic combined systolic (congestive) and diastolic (congestive) heart failure; J45.909 Unspecified asthma, uncomplicated; Z53.29 Procedure and treatment not carried out because of patient's decision for other reasons; E10.43 Type 1 diabetes mellitus with diabetic autonomic (poly)neuropathy; K31.84 Gastroparesis; I16.0 Hypertensive urgency; E87.6 Hypokalemia; E83.42 Hypomagnesemia; E83.39 Other disorders of phosphorus metabolism; I11.0 Hypertensive heart disease with heart failure; F12.90 Cannabis use, unspecified, uncomplicated; Z96.41 Presence of insulin pump (external) (internal); Z79.4 Long term (current) use of insulin; Z83.3 Family history of diabetes mellitus
CPT/HCPCS: 36415; 36600; 71045; 80048; 80053; 80061; 80307; 81001; 82010; 82805; 82962; 83036; 83735; 84100; 84132; 84443; 84484; 85007; 85025; 85027; 93005; 93306; 96365; 96375; 99291; G0378; J1815; J2003; J2405; J2470